=== PATIENT | female | born 1955 | race Caucasian/White ===

== ENCOUNTER 2018-04-10 14:11 | Outpatient (CLI) | payer OTHER ==
--- NOTE | 2018-04-13 10:48 | MMO ---
BILATERAL SCREENING MAMMOGRAM: Date: 04/10/18 HISTORY: Screening. COMPARISON: Mammograms from 2010 and 2008. TECHNIQUE: Bilateral screening CC and MLO mammograms. This patient's mammogram was interpreted with the assistance of computer-aided detection. FINDINGS: The breast parenchyma is primarily fatty. Benign calcifications left breast. In the left breast, MLO only, middle depth, posterior to the nipple, is a dense asymmetry measuring a pproximately 3.0 mm. This was not seen on any of the prior examinations. IMPRESSION: BIRADS 0: Incomplete: Need Additional Imaging Evaluation and/or Prior Mammograms for Comparison 3.0 mm asymmetry middle depth of left breast seen on MLO only requires further evaluation. Spot compr ession and ultrasound, if deemed necessary, is recommended. The facility will notify patient of need for additional imaging services. POS: [facility]
== END 2018-04-10 14:12 | disposition home or self-care (01) ==
LOC: SCSMAMMO 14:11
PROVIDERS: ATTEND Family Medicine
DX: Z12.31 Encounter for screening mammogram for malignant neoplasm of breast (principal); N64.89 Other specified disorders of breast
CPT/HCPCS: 77067

== ENCOUNTER 2018-04-25 10:48 | Outpatient (CLI) | payer OTHER | END 2018-04-25 10:49 | disposition home or self-care (01) | LOC: BICMAMMO 10:48 | PROVIDERS: ATTEND Family Medicine | DX: R92.2 Inconclusive mammogram (principal); Z80.3 Family history of malignant neoplasm of breast | CPT/HCPCS: G0279 ==

== ENCOUNTER 2019-04-20 13:17 | Outpatient (CLI) | payer OTHER ==
--- NOTE | 2019-04-20 13:55 | ULT ---
EXAM: US Thyroid STANDARD PROVIDED CLINICAL HISTORY: Thyroid nodules COMPARISON: None FINDINGS: Right thyroid lobe measures about 3.8 x 1.2 x 1.6 cm. There is a 7 mm hypoechoic mixed solid and cyst ic nodule with smooth margins and wider than tall morphology of the superior pole of the right thyroid lobe. This demonstrates internal echogenic foci. Left thyroid lobe measures about 3.7 x 1 x 1.5 cm. There is a 6 mm hypoechoic, mixed solid and cystic nodule demonstrating smooth margins, wider than tall morphology and punctate internal echogenic foci. IMPRESSION: Bilateral nonspecific subcentimeter thyroid nodules. Consider sonographic follow-up.
== END 2019-04-20 13:18 | disposition home or self-care (01) ==
LOC: SCSULT 13:17
PROVIDERS: ATTEND Internal Medicine Cardiovascular Disease
DX: E04.2 Nontoxic multinodular goiter (principal)
CPT/HCPCS: 76536